=== PATIENT | female | born 1955 | race Caucasian/White ===

== ENCOUNTER → 2016-12-19 | Outpatient (CLI) | payer OTHER ==
[~2016-12-19] MED LIST: 00186-0372-20 IH; ABILIFY5 MG PO; AGGRENOX 25 MG-1 CER PO; AGGRENOX ER 251 CER PO; ALEVE 220MG220 MG PO; AMBIEN 10MG10 MG PO; AMBIEN CR 12.12.5 MG PO; AMBIEN CR12.5 MG PO; BUDEPRION SR150 M1 PO; CLONAZEPAM0.5 MG PO; DALIRESP500 MCG PO; DESYREL 50MG50 MG PO; DIFLUCAN150 MG PO; DILAUDID 2MG TAB2 MG PO; DITROPAN XL5 MG PO; DULERA1 ARO IH; EDARBI80 MG PO; EFFEXOR 75M75 MG/TAB PO; FIORICET 325 MG1 TA1 PO; FIORICET W/CODE1 CA1 PO; KLONOPIN 0.5MG0.5 MG PO; LAMICTAL200 MG PO; LEVAQUIN 750MG750 M1 PO; LEVOXYL0.175 MG PO; LEVOXYL0.2 MG PO; LIPITOR 40MG TA40 MG PO; LUNESTA3 MG PO; MASON NATURAL1200 MG PO; MEDROL 4MG DOSPA4 MG PO; OMEGA-3 1000 MG1 CAP PO; PANTOPRAZOLE40 MG PO; PREDNISONE20 MG PO; PROTONIX 40MG T40 MG PO; REGLAN 5MG T5 MG/TAB PO; RT SPIRIVA18 MCG IH; SEROQUEL 1100 MG/TAB PO; SIMVASTATIN20 MG PO; SYNTHROID0.15 MG PO; SYNTHROID0.175 MG PO; TEGRETOL 2200 MG/TA1 PO; THEO-DUR 1100 MG/TAB PO; TYLENOL 500MG500 MG PO; VENTOLIN0.09 MG IH; XANAX .25M0.25 MG/TA PO; ZOCOR 40MG40 MG PO; ZOFRAN 4MG T4 MG/TAB PO; ZOLOFT100 MG PO; ZYRTEC 10MG10 MG PO; [UNRECOGNIZED DRUG - OTHER] PO
== END ==
LOC: BHSO 14:39
DX: F31.11 Bipolar disorder, current episode manic without psychotic features, mild (principal)

== ENCOUNTER → 2017-01-22 | Outpatient (CLI) | payer OTHER | LOC: BHSO 12:46 | DX: F31.31 Bipolar disorder, current episode depressed, mild (principal) ==

== ENCOUNTER → 2017-01-31 | Outpatient (CLI) | payer OTHER | LOC: COL.RAD 08:00 | DX: M25.512 Pain in left shoulder (principal) | CPT/HCPCS: J3301; Q9967 ==

== ENCOUNTER → 2017-02-28 | Outpatient (CLI) | payer OTHER | LOC: BHSO 11:00 | DX: F31.31 Bipolar disorder, current episode depressed, mild (principal) ==

== ENCOUNTER 2017-03-15 07:00 | Day surgery (SDC) | payer OTHER ==
[~2017-03-15] VITALS: Ht 170.2 cm; Wt 107.9 kg
[~2017-03-15 07:00] MED LIST changes: -TYLENOL 500MG500 MG PO
[2017-03-15 08:09] VITALS: BP 128/79; PULSE 63
[2017-03-15 10:02] VITALS: BP 127/63; PULSE 62; TEMP 98
[2017-03-15 10:15] VITALS: BP 120/46; PULSE 60
[2017-03-15 10:30] VITALS: BP 119/72; PULSE 75; TEMP 98.2
[2017-03-15 11:59] VITALS: BP 111/52; PULSE 75
[2017-03-15 12:00] VITALS: BP 114/54; BP 127/57; PULSE 62; PULSE 70
[2017-06-23] MEDS ORDERED: TYLENOL 500MG500 MG PO (12:50)
== END 2017-03-15 11:30 | disposition home or self-care (01) ==
LOC: SDCO 07:00 → MEDICAL 07:01 → SDCO 11:00
DX: R05 Cough (principal); G47.33 Obstructive sleep apnea (adult) (pediatric); K21.9 Gastro-esophageal reflux disease without esophagitis; E07.9 Disorder of thyroid, unspecified; J45.909 Unspecified asthma, uncomplicated; Z86.73 Personal history of transient ischemic attack (TIA), and cerebral infarction without residual deficits; Z85.41 Personal history of malignant neoplasm of cervix uteri; Z79.899 Other long term (current) drug therapy
CPT/HCPCS: OP; J1956; J2704; J2920; J7120

== ENCOUNTER 2017-03-17 10:45 | Outpatient (RCR) | payer OTHER ==
[2017-06-23] MEDS ORDERED: TYLENOL 500MG500 MG PO (12:50)
== END 2017-03-18 | disposition home or self-care (01) ==
LOC: WSPT
DX: M25.512 Pain in left shoulder (principal)
CPT/HCPCS: G0283-GP

== ENCOUNTER → 2017-04-04 | Outpatient (CLI) | payer OTHER ==
[~2017-04-04] MED LIST changes: +TYLENOL 500MG500 MG PO
== END ==
LOC: BHSO 10:56
DX: F31.81 Bipolar II disorder (principal)

== ENCOUNTER 2017-04-14 15:45 | Outpatient (RCR) | payer OTHER ==
[~2017-04-14 15:45] MED LIST changes: -TYLENOL 500MG500 MG PO
[2017-06-23] MEDS ORDERED: TYLENOL 500MG500 MG PO (12:50)
== END 2017-05-14 07:58 | disposition still patient (30) ==
LOC: WSPT 15:45
DX: M13.812 Other specified arthritis, left shoulder (principal)
CPT/HCPCS: G0283-GP

== ENCOUNTER → 2017-04-21 | Outpatient (CLI) | payer OTHER ==
[~2017-04-21] MED LIST changes: +TYLENOL 500MG500 MG PO
== END ==
LOC: BHSO 10:05
DX: F31.73 Bipolar disorder, in partial remission, most recent episode manic (principal)

== ENCOUNTER → 2017-05-14 | Outpatient (CLI) | payer OTHER | LOC: COL.RAD 09:37 | DX: M50.321 Other cervical disc degeneration at C4-C5 level (principal); M47.812 Spondylosis without myelopathy or radiculopathy, cervical region; M48.02 Spinal stenosis, cervical region; M50.222 Other cervical disc displacement at C5-C6 level ==

== ENCOUNTER → 2017-05-28 | Outpatient (CLI) | payer OTHER ==
[~2017-05-28] VITALS: Ht 170.2 cm; Wt 109.4 kg
[2017-05-28 09:30] VITALS: BP 135/68; PULSE 70
== END ==
LOC: COL.RAD 09:00
DX: M50.922 Unspecified cervical disc disorder at C5-C6 level (principal); Z53.9 Procedure and treatment not carried out, unspecified reason

== ENCOUNTER → 2017-06-27 | Outpatient (CLI) | payer OTHER ==
[~2017-06-27] VITALS: Ht 170.2 cm; Wt 111.0 kg
[2017-06-27 08:55] VITALS: BP 124/77; PULSE 66
[2017-06-27 11:24] VITALS: BP 135/67; PULSE 56
[2017-06-27 11:29] VITALS: BP 135/73; PULSE 53
[2017-06-27 11:48] VITALS: BP 119/64; PULSE 55
== END ==
LOC: COL.RAD 06-20 09:15
DX: M50.222 Other cervical disc displacement at C5-C6 level (principal); M50.223 Other cervical disc displacement at C6-C7 level
CPT/HCPCS: J1100

== ENCOUNTER → 2017-07-22 | Outpatient (CLI) | payer OTHER | LOC: BHSO 09:57 | DX: F41.1 Generalized anxiety disorder (principal) ==

== ENCOUNTER → 2017-08-21 | Outpatient (CLI) | payer OTHER | LOC: MC.RAD 10:25 | DX: Z12.31 Encounter for screening mammogram for malignant neoplasm of breast (principal) ==

== ENCOUNTER 2017-08-22 08:25 | Outpatient (RCR) | payer OTHER | END 2017-09-11 12:02 | LOC: WSPT 08:25 | DX: M25.512 Pain in left shoulder (principal) ==

== ENCOUNTER → 2017-10-21 | Outpatient (CLI) | payer OTHER | LOC: BHSO 09:54 | DX: F41.1 Generalized anxiety disorder (principal) ==

== ENCOUNTER → 2018-01-20 | Outpatient (CLI) | payer OTHER | LOC: BHSO 09:44 | DX: F31.81 Bipolar II disorder (principal) | CPT/HCPCS: G0463 ==

== ENCOUNTER → 2018-03-13 | Outpatient (CLI) | payer OTHER | LOC: BHSO 10:12 | DX: F31.81 Bipolar II disorder (principal) | CPT/HCPCS: G0463 ==

== ENCOUNTER 2018-04-28 13:02 | Day surgery (SDC) | payer OTHER, MEDICARE ==
[~2018-04-28] VITALS: Ht 170.2 cm; Wt 99.5 kg
[2018-04-28 13:21] VITALS: BP 135/70; PULSE 55; TEMP 97.8
[2018-04-28] MEDS ORDERED: AGGRENOX ER 251 CER PO (13:23)
[2018-04-28] MEDS ORDERED: HYZAAR 50-12.1 UDTAB PO (13:23)
[2018-04-28] MEDS ORDERED: SINGULAIR 110 MG/TAB PO (13:23)
[2018-04-28] MEDS ORDERED: SYNTHROID 0.10.15 MG PO (13:24)
[2018-04-28] MEDS ORDERED: 00186-0372-20 IH (13:24)
[2018-04-28] MEDS ORDERED: STOOL SOFTENER100 M2 PO (13:24)
[2018-04-28] MEDS ORDERED: PRILOSEC 20MG20 MG PO (15:15)
[2018-04-28 15:25] VITALS: BP 107/52; PULSE 59; TEMP 97.6
[2018-04-28 15:45] VITALS: BP 107/52; PULSE 60
== END 2018-04-28 15:53 | disposition home or self-care (01) ==
LOC: SDCO 13:02
DX: K29.30 Chronic superficial gastritis without bleeding (principal); K25.7 Chronic gastric ulcer without hemorrhage or perforation; K31.89 Other diseases of stomach and duodenum; I10 Essential (primary) hypertension; J45.909 Unspecified asthma, uncomplicated; E78.5 Hyperlipidemia, unspecified; Z88.0 Allergy status to penicillin; Z86.73 Personal history of transient ischemic attack (TIA), and cerebral infarction without residual deficits; Z85.41 Personal history of malignant neoplasm of cervix uteri
CPT/HCPCS: OP; J2250; J3010; J7030

== ENCOUNTER → 2018-05-08 | Outpatient (CLI) | payer OTHER, MEDICARE ==
[~2018-05-08] MED LIST changes: +HYZAAR 50-12.1 UDTAB PO; +PRILOSEC 20MG20 MG PO; +SINGULAIR 110 MG/TAB PO; +STOOL SOFTENER100 M2 PO; +SYNTHROID 0.10.15 MG PO
== END ==
LOC: COL.RAD 07:46
DX: M25.512 Pain in left shoulder (principal); Z96.612 Presence of left artificial shoulder joint
CPT/HCPCS: J3301; Q9967

== ENCOUNTER → 2018-05-11 | Outpatient (CLI) | payer OTHER, MEDICARE | LOC: BHSO 10:24 | DX: F31.81 Bipolar II disorder (principal) | CPT/HCPCS: G0463 ==

== ENCOUNTER → 2018-07-14 | Outpatient (CLI) | payer OTHER, MEDICARE | LOC: BHSO 10:09 | DX: F31.81 Bipolar II disorder (principal) | CPT/HCPCS: G0463 ==

== ENCOUNTER 2018-08-03 16:27 | Observation (INO) | payer OTHER, MEDICARE ==
[~2018-08-03] VITALS: Ht 172.7 cm; Wt 98.6 kg
[~2018-08-03 16:27] MED LIST changes: -EFFEXOR 75M75 MG/TAB PO; +EFFEXOR-XR150 MG PO
[2018-08-03 17:01] LABS: BASO # 0.1 (0.0-0.2); BASO % 0.9 % (0.0-2.0); EOS # 0.2 (0.0-0.7); GRAN # 3.6 (1.4-6.5); GRAN % 64.9 % (42.2-75.2); HEMATOCRIT 41.8 % (37.0-47.0); HEMOGLOBIN 13.3 g/dl (12.5-16.0); LYMPH # 1.2 (1.2-3.4); LYMPH % 21.8 % (20.0-51.0); MEAN CELL VOLUME 85 fl (80.0-100.0); MEAN CORPUSCULAR HEMOGLOBIN 27 pg (27.0-31.0); MEAN CORPUSCULAR HGB CONC 32 g/dl (33.0-37.0); MEAN PLATELET VOLUME 9.4 fl (7.4-10.4); MONO # 0.4 (0.1-0.6); PLATELET COUNT 219 K/mm3 (130-400)
[2018-08-03 17:08] LABS: PARTIAL THROMBOPLASTIN TIME 32.9 SECONDS (26.0-37.0)
[2018-08-03 17:09] LABS: ALANINE AMINOTRANSFERASE 22 U/L (9-52); ALBUMIN 4.3 gm/dL (3.5-5.0); ALKALINE PHOSPHATASE 94 U/L (50-136); ANION GAP 12 mmol/L (7-16); AST,SGOT 23 U/L (15-37); BILIRUBIN,TOTAL 0.7 mg/dL (0.0-1.0); BLOOD UREA NITROGEN 9 mg/dL (7-17); CALCIUM 9.2 mg/dL (8.4-10.2); CARBON DIOXIDE 28 mmol/L (22-30); CHLORIDE 101 mmol/L (98-107); CREATININE, serum 0.64 mg/dL (0.52-1.25); GLUCOSE 98 mg/dL (74-106); POTASSIUM 3.2 mmol/L (3.4-5.0); SODIUM 141 mmol/L (137-145); TOTAL PROTEIN 7.4 gm/dL (6.4-8.2)
[2018-08-03 17:23] LABS: TROPONIN-I < 0.012 ng/mL (0.000-0.034)
[2018-08-03 19:42] VITALS: BP 157/66; PULSE 55; TEMP 98.4
[2018-08-03 20:27] LABS: TRICYCLIC ANTIDEPRESS URINE NEGATIVE
[2018-08-04 00:40] VITALS: BP 128/81; PULSE 68; TEMP 97.7
[2018-08-04 03:55] VITALS: BP 124/59; PULSE 52; TEMP 97.5
[2018-08-04 07:26] LABS: BASO % 0.8 % (0.0-2.0); EOS # 0.2 (0.0-0.7); EOS % 4.8 % (0-4.0); GRAN % 53.3 % (42.2-75.2); HEMATOCRIT 37.3 % (37.0-47.0); LYMPH # 1.2 (1.2-3.4); LYMPH % 30.5 % (20.0-51.0); MEAN CELL VOLUME 84 fl (80.0-100.0); MEAN CORPUSCULAR HEMOGLOBIN 27 pg (27.0-31.0); MEAN CORPUSCULAR HGB CONC 32 g/dl (33.0-37.0); MEAN PLATELET VOLUME 9.4 fl (7.4-10.4); MONO # 0.4 (0.1-0.6); MONO % 10.6 % (1.7-9.3); PLATELET COUNT 182 K/mm3 (130-400); RED BLOOD COUNT 4.44 M/mm3 (4.10-5.30); REDCELL DISTRIBUTION WIDTH-CV 22.3 % (11.5-14.5)
[2018-08-04 07:33] VITALS: BP 145/57; PULSE 49; TEMP 98.7
[2018-08-04 07:35] LABS: CALCIUM 8.6 mg/dL (8.4-10.2); CHOLESTEROL RISK RATIO 2.6; CREATININE, serum 0.57 mg/dL (0.52-1.25); POTASSIUM 3.5 mmol/L (3.4-5.0); URIC ACID 3.7 mg/dL (2.5-6.2)
[2018-08-04 07:55] LABS: ERYTHROCYTE SEDIMENTATION RATE 1 mm/hr (0-30)
[2018-08-04 08:27] LABS: CARBAMAZEPINE (TEGRETOL) 6.9 ug/mL (4.0-12.0)
[2018-08-04 11:21] VITALS: BP 162/64; PULSE 58; TEMP 98.6
[2018-08-04 13:17] LABS: HOMOCYSTEINE 6.9 umol/L (4.0-14.0)
[2018-08-04 15:11] VITALS: BP 161/73; PULSE 63; TEMP 98
[2018-08-04 20:30] VITALS: BP 179/65; PULSE 63; TEMP 98
[2018-08-04] MEDS ORDERED: BUSPIRONE HCL7.5 MG PO (21:11)
[2018-08-05 00:50] VITALS: BP 130/54; PULSE 58
[2018-08-05 04:39] VITALS: BP 144/63; PULSE 54; TEMP 97.8
[2018-08-05 07:25] VITALS: BP 158/57; PULSE 62; TEMP 98.2
[2018-08-05] MEDS ORDERED: SYNTHROID0.175 MG PO (09:02)
== END 2018-08-05 11:00 | disposition home or self-care (01) ==
LOC: COL.ER 16:27 → MEDICAL 17:32
PROVIDERS: Emergency Medicine; Hospitalist
DX: G81.94 Hemiplegia, unspecified affecting left nondominant side (principal); I10 Essential (primary) hypertension; E78.5 Hyperlipidemia, unspecified; E03.9 Hypothyroidism, unspecified; K21.9 Gastro-esophageal reflux disease without esophagitis; F32.9 Major depressive disorder, single episode, unspecified; J44.9 Chronic obstructive pulmonary disease, unspecified; K59.00 Constipation, unspecified; Z79.82 Long term (current) use of aspirin; Z90.710 Acquired absence of both cervix and uterus; Z88.0 Allergy status to penicillin; Z86.73 Personal history of transient ischemic attack (TIA), and cerebral infarction without residual deficits; Z82.49 Family history of ischemic heart disease and other diseases of the circulatory system
CPT/HCPCS: A9585; G0008; G0378; G8978-GP; G8979-GP; G8987-GO; G8988-GO; G8996-GN; G8997-GN; J1644; J7030

== ENCOUNTER → 2018-08-10 | Outpatient (CLI) | payer OTHER, MEDICARE ==
[~2018-08-10] MED LIST changes: +BUSPIRONE HCL7.5 MG PO
== END ==
LOC: BHSO 13:04
DX: F31.11 Bipolar disorder, current episode manic without psychotic features, mild (principal)

== ENCOUNTER → 2018-09-15 | Outpatient (CLI) | payer OTHER, MEDICARE | LOC: BHSO 10:06 | DX: F31.81 Bipolar II disorder (principal) | CPT/HCPCS: G0463 ==

== ENCOUNTER 2018-10-08 14:15 | Outpatient (RCR) | payer OTHER, MEDICARE | END 2018-11-10 | disposition home or self-care (01) | LOC: WSPT | DX: Z47.89 Encounter for other orthopedic aftercare (principal) | CPT/HCPCS: G0283-GP; G8978-GP; G8979-GP ==

== ENCOUNTER → 2018-11-17 | Outpatient (CLI) | payer OTHER, MEDICARE | LOC: BHSO 10:21 | DX: F31.81 Bipolar II disorder (principal) | CPT/HCPCS: G0463 ==

== ENCOUNTER 2018-11-26 09:35 | Inpatient (IN) | payer OTHER, MEDICARE ==
[~2018-11-26] VITALS: Ht 167.6 cm; Wt 103.7 kg
[2019-02-03] VITALS (13 sets, daily range): BP systolic 109–125; BP diastolic 51–72; PULSE 57–69; TEMP 97.4–98
[2019-02-03] MEDS ORDERED: HYZAAR 25 MG-101 TAB PO (07:35)
[2019-02-03] MEDS ORDERED: BIOTIN10000 MC1 PO (07:38)
[2019-02-03] MEDS ORDERED: AMBIEN 5MG TABLE5 MG PO (07:39)
[2019-02-03] MEDS ORDERED: B-121000 MCG PO (07:39)
[2019-02-03] MEDS ORDERED: IRON 27 MG PO (07:39)
--- NOTE | 2019-02-03 08:04 | NUR ---
appears to doze, awakened and full assessment completed and breakfast ordered
[2019-02-03] MEDS ORDERED: PREDFORTE15ML OD (08:45)
[2019-02-03] MEDS ORDERED: POLYMYXIN B/TRIMETH OD (08:46)
[2019-02-03] MEDS ORDERED: [UNRECOGNIZED DRUG - OTHER] OD (08:48)
--- NOTE | 2019-02-03 13:40 | NUR ---
returned to room per bed from PACU, awake and alert but very sleepy, IV infusing and placed on pump at 100ml/hr, O2 on at 3L/NC and O2 sat 94%, boyd cath patent draining clear yellow urine, aquacel dressing to left shoulder CD&I and abduction sling in place, SCDs on bilaterally, has eye patch over left eye since had cataract surgery last week, denies needs at this time
--- NOTE | 2019-02-03 14:15 | NUR ---
sleeps between checks, awakened and full assessment completed, see interventions for further info, eye drops placed, goes back to sleep quickly, friend at bedside
--- NOTE | 2019-02-03 14:47 | NUR ---
JOSE ELIAS and SW student met with the patient and patient's , Tomy, to discuss discharge plan. The patient lives outside of [facility] with her . She reports independence with ADLs prior to hospitalization and has a cane. The patient's PCP is Dr. Jaxon Shabazz and she receives her medications at the [facility] in [place]. She reports no difficulties obtaining her meds. The patient plans to return home with her and receive outpatient therapy at [facility] upon discharge. No additional needs at this time.
--- NOTE | 2019-02-03 14:53 | NUR ---
asking about having something to eat, provided applesauce and if tolerates will order regular food, instructed on how to order regular food and at bedside to help if needed
--- NOTE | 2019-02-03 15:00 | NUR ---
had applesauce and tolerated well, Dr Mercado in to see patient, boyd catheter discontinued, VENDING ROUTE DRIVER will assist up to bathroom
--- NOTE | 2019-02-03 15:30 | NUR ---
is back in bed now, states her stomach is "flip flopping" now but no real nausea or vomitting, states pain is ok at this time
--- NOTE | 2019-02-03 15:30 | NUR ---
c/o pain 04/19 and medicated with roxicodone 10mg po
--- NOTE | 2019-02-03 16:30 | NUR ---
assisted up to bathroom and voided qs, abduction sling adjusted around her back for comfort, denies other needs
--- NOTE | 2019-02-03 17:45 | NUR ---
sitting up in bed watching TV, denies needs
--- NOTE | 2019-02-03 18:59 | NUR ---
bedside shift report given to Megan PARISH and Jaz RN
--- NOTE | 2019-02-03 20:57 | NUR ---
Assessment completed. Patient is A&O x 4. VSS, currently on 3 liters of supplemental O2 via nasal cannula per orders. Reports numbness/tingling to LUE, voiced concerned that she is unable to feel arm at this time. Gave reassurance that block was still working and that is why patient's LUE is numbness/tingling. Radial pulses intact. Aquacell dressing to left shoulder is CDI. Shoulder abductor in place. Ice pack applied. Tolerating diet with no c/o nausea. Voiding with no difficulities. IVF infusing with intermittent antibiotic. Denies any concerns or needs at this time, call light is within reach. Will ambulate in the hallway with patient this evening.
--- NOTE | 2019-02-03 22:42 | NUR ---
UP TO AMBULATE IN [place]. WALKED FULL TEJON AROUND MEDICAL/SURGICAL FLOOR. TOLERATED WELL.
--- NOTE | 2019-02-04 04:08 | NUR ---
HAS RESTED WELL THROUGH THE NIGHT. UP TO BATHROOM AT THIS TIME. AMBULATES WELL WITH NO ASSISTANCE. VOIDING. O2@ 3L/NC. DENIES ANY C/O PAIN THIS SHIFT. ABDUCTOR SLING ON IN CORRECT POSITION. FRESH ICE PACK APPLIED. CALL LIGHT WITHIN REACH. BED IN LOW POSITION. WHEELS LOCKED. ENCOURAGED TO CALL FOR QUESTIONS OR CONCERNS. VERBALIZES UNDERSTANDING. WILL MONITOR.
[2019-02-04 04:24] VITALS: BP 109/42; PULSE 58; TEMP 98.1
--- NOTE | 2019-02-04 06:29 | NUR ---
REQUEST SENT TO PHARMACY TO ADJUST TIME OF PROTONIX DOSE TO 0900. REFUSED THIS AM STATING SHE WONT TAKE IT UNTIL 09.
--- NOTE | 2019-02-04 07:00 | NUR ---
appears to be dozing, bedside shift report received МАРИНА Sebastian
[2019-02-04] MEDS ORDERED: ROXICODONE 55 MG/TAB PO (07:53)
[2019-02-04] MEDS ORDERED: ASPI325T6 PO (07:53)
[2019-02-04] MEDS ORDERED: NORCO 325 MG-7.1 TAB PO (07:53)
--- NOTE | 2019-02-04 09:30 | NUR ---
physical therapy in and worked with patient, during execises she began to feel nauseous and hot and states it was because of the pain, was medicated with hydrocodone 7.5mg 2 tabs prior to therapy
--- NOTE | 2019-02-04 09:48 | NUR ---
Patient is resting in chair. No draining, redness, or edema noted to right hand INT. Pain rated at 7/10. PRN Narco given. She voices no complaints at this time. Will contiue to monitor.
[2019-02-04 09:51] VITALS: BP 117/57; PULSE 58; TEMP 97.5
--- NOTE | 2019-02-04 10:10 | NUR ---
reviewed assessment completed by student and in agreement with that assessment
--- NOTE | 2019-02-04 11:51 | NUR ---
up in chair looking at phone, denies any further nausea or feeling hot, states pain pills given earlier have helped and she will order lunch soon
--- NOTE | 2019-02-04 12:24 | NUR ---
First visit from the shop mechanic helper. No needs right now.
[2019-02-04 12:32] VITALS: BP 115/54; PULSE 65; TEMP 98.2
--- NOTE | 2019-02-04 13:21 | NUR ---
Patient is resting in chair. Left shoulder dressing remains CDI. Pain rated @ 4/10. No redness, drainage, or edema noted to right hand INT. She voices no complaints at this time. Will continue to monitor.
--- NOTE | 2019-02-04 13:30 | NUR ---
in bed and appears to be sleeping, resp quiet
--- NOTE | 2019-02-04 14:22 | NUR ---
in bed and appears to be sleeping, resp quiet and easy
--- NOTE | 2019-02-04 15:00 | NUR ---
calls and asks for some tylenol, enter room and she is tearful and states she is haviang terrible pain, explained she could have called earlier for something for pain and not to wait too long before taking pain pills, medicated with roxicodone 10mg po for c/os pain 07/20, will rest in chair and allow pain pills to start to work, here and given prescriptions and will go and pick these up,
--- NOTE | 2019-02-04 15:55 | NUR ---
resting in bed with sling off but arm in sling of plane, states having pain/discomfort to elbow, instructed her it is OK to move her elbow up and down but not out to the side, verbalizes understanding, states pain is getting better since pain pills
[2019-02-04 16:18] VITALS: BP 114/63; PULSE 64; TEMP 98.5
--- NOTE | 2019-02-04 16:20 | NUR ---
pain is now relieved and is ready for discharge, discharge instructions given to pateint and her , verbalizes understanding
--- NOTE | 2019-02-04 16:35 | NUR ---
discharged per WC
== END 2019-02-04 16:35 | disposition home or self-care (01) | DRG 483 ==
LOC: SURG 02-03 06:33 → JCC 02-03 07:30 → SURG 02-04 16:35
PROVIDERS: ADMIT Orthopaedic Surgery
PROC: 0RRK0JZ Replacement of Left Shoulder Joint with Synthetic Substitute, Open Approach (ICD-10-PCS; principal; 2019-02-03 11:00)
DX: M19.012 Primary osteoarthritis, left shoulder (principal); F41.9 Anxiety disorder, unspecified; Z85.41 Personal history of malignant neoplasm of cervix uteri; E78.00 Pure hypercholesterolemia, unspecified; M81.0 Age-related osteoporosis without current pathological fracture; Z86.73 Personal history of transient ischemic attack (TIA), and cerebral infarction without residual deficits; Z87.891 Personal history of nicotine dependence
CPT/HCPCS: A4314; A4619; A9284; C1713; C1776; J0171; J0690; J1100; J2250; J2405; J2704; J3370; J7030; J7120

== ENCOUNTER → 2019-01-06 | Outpatient (CLI) | payer OTHER, MEDICARE | LOC: BHSO 13:17 | DX: F31.81 Bipolar II disorder (principal) | CPT/HCPCS: G0463 ==

== ENCOUNTER → 2019-01-14 | Outpatient (CLI) | payer OTHER, MEDICARE | LOC: BHSO 10:26 | DX: F31.81 Bipolar II disorder (principal) | CPT/HCPCS: G0463 ==

== ENCOUNTER → 2019-01-27 | Outpatient (CLI) | payer OTHER, MEDICARE ==
[~2019-01-27] MED LIST changes: +AMBIEN 5MG TABLE5 MG PO; +ASPI325T6 PO; +B-121000 MCG PO; +BIOTIN10000 MC1 PO; +HYZAAR 25 MG-101 TAB PO; +IRON 27 MG PO; +NORCO 325 MG-7.1 TAB PO; +POLYMYXIN B/TRIMETH OD; +PREDFORTE15ML OD; +ROXICODONE 55 MG/TAB PO; +[UNRECOGNIZED DRUG - OTHER] OD
== END ==
LOC: MC.RAD 10:53
DX: Z12.31 Encounter for screening mammogram for malignant neoplasm of breast (principal)

== ENCOUNTER → 2019-01-27 | Outpatient (CLI) | payer OTHER, MEDICARE ==
[~2019-01-27] MED LIST changes: -AMBIEN 5MG TABLE5 MG PO; -ASPI325T6 PO; -B-121000 MCG PO; -BIOTIN10000 MC1 PO; -HYZAAR 25 MG-101 TAB PO; -IRON 27 MG PO; -NORCO 325 MG-7.1 TAB PO; -POLYMYXIN B/TRIMETH OD; -PREDFORTE15ML OD; -ROXICODONE 55 MG/TAB PO; -[UNRECOGNIZED DRUG - OTHER] OD
[2019-01-27 11:19] LABS: HIV 1/2 Antibodies Non-Reactive; HIV-1p24 Antigen Non-Reactive
== END ==
LOC: COL.LAB 10:21
PROVIDERS: Orthopaedic Surgery
DX: Z01.812 Encounter for preprocedural laboratory examination (principal); Z12.31 Encounter for screening mammogram for malignant neoplasm of breast; M19.012 Primary osteoarthritis, left shoulder

== ENCOUNTER → 2019-02-19 | Outpatient (CLI) | payer OTHER, MEDICARE ==
[~2019-02-19] MED LIST changes: +AMBIEN 5MG TABLE5 MG PO; +ASPI325T6 PO; +B-121000 MCG PO; +BIOTIN10000 MC1 PO; +HYZAAR 25 MG-101 TAB PO; +IRON 27 MG PO; +NORCO 325 MG-7.1 TAB PO; +POLYMYXIN B/TRIMETH OD; +PREDFORTE15ML OD; +ROXICODONE 55 MG/TAB PO; +[UNRECOGNIZED DRUG - OTHER] OD
== END ==
LOC: BHSO 11:01
DX: F31.81 Bipolar II disorder (principal)
CPT/HCPCS: G0463

== ENCOUNTER → 2019-04-06 | Outpatient (CLI) | payer OTHER, MEDICARE | LOC: BHSO 09:42 | DX: F31.81 Bipolar II disorder (principal) | CPT/HCPCS: G0463 ==

== ENCOUNTER → 2019-05-03 | Outpatient (CLI) | payer OTHER, MEDICARE | LOC: BHSO 09:51 | DX: F31.81 Bipolar II disorder (principal) | CPT/HCPCS: G0463 ==

== ENCOUNTER → 2019-08-03 | Outpatient (CLI) | payer OTHER, MEDICARE | LOC: BHSO 10:38 | DX: F31.81 Bipolar II disorder (principal) | CPT/HCPCS: G0463 ==

== ENCOUNTER → 2019-09-27 | Outpatient (CLI) | payer OTHER, MEDICARE | LOC: BHSO 14:07 | DX: F31.81 Bipolar II disorder (principal) | CPT/HCPCS: G0463 ==

== ENCOUNTER → 2019-12-20 | Outpatient (CLI) | payer OTHER, MEDICARE | LOC: COL.RAD 07:57 | DX: M25.511 Pain in right shoulder (principal) | CPT/HCPCS: J3301; Q9967 ==

== ENCOUNTER → 2020-03-14 | Outpatient (CLI) | payer OTHER, MEDICARE | LOC: BHSO 10:51 | DX: F41.1 Generalized anxiety disorder (principal) | CPT/HCPCS: G0463 ==

== ENCOUNTER → 2020-04-12 | Outpatient (CLI) | payer OTHER, MEDICARE | LOC: BHSO 08:56 | DX: F31.81 Bipolar II disorder (principal) | CPT/HCPCS: G0463 ==

== ENCOUNTER → 2020-08-17 | Outpatient (CLI) | payer OTHER, MEDICARE ==
[2020-08-17 11:35] LABS: HEMOGLOBIN 12.3 g/dl (12.5-16.0); MEAN CELL VOLUME 91 fl (80.0-100.0); MEAN CORPUSCULAR HEMOGLOBIN 29 pg (27.0-31.0); MEAN CORPUSCULAR HGB CONC 32 g/dl (33.0-37.0); MEAN PLATELET VOLUME 9.5 fl (7.4-10.4); PLATELET COUNT 209 K/mm3 (130-400); REDCELL DISTRIBUTION WIDTH-CV 17.9 % (11.5-14.5)
[2020-08-17 12:05] LABS: ERYTHROCYTE SEDIMENTATION RATE 6 mm/hr (0-30)
== END ==
LOC: COL.LAB 10:04
PROVIDERS: Orthopaedic Surgery
DX: Z96.611 Presence of right artificial shoulder joint (principal); Z96.612 Presence of left artificial shoulder joint

== ENCOUNTER → 2020-10-30 | Outpatient (CLI) | payer OTHER, MEDICARE | LOC: COL.RAD 06:55 | DX: K44.9 Diaphragmatic hernia without obstruction or gangrene (principal) | CPT/HCPCS: Q9967 ==

== ENCOUNTER → 2020-11-06 | Outpatient (CLI) | payer OTHER, MEDICARE | LOC: COL.RAD 12:01 | DX: R06.02 Shortness of breath (principal); R09.89 Other specified symptoms and signs involving the circulatory and respiratory systems ==

== ENCOUNTER → 2020-12-26 | Outpatient (CLI) | payer OTHER, MEDICARE | LOC: COL.RAD 08:42 | DX: R60.0 Localized edema (principal) | CPT/HCPCS: A9585; Q9967 ==

== ENCOUNTER → 2021-01-24 | Outpatient (CLI) | payer OTHER, MEDICARE ==
[~2021-01-24] MED LIST changes: +ATIVAN 1MG T1 MG/TAB PO; +CYMBALTA 60MG60 MG PO; +FOLIC ACID 40400 MCG PO; +LINZESS145CAP PO; +MELATONIN5 M1 SL; +MICARDIS HCT 251 TAB PO; +MULTIPLE VITAMI1 TA5 PO; +PLAVIX 75MG TAB75 MG PO; +RESTORIL 1515 MG/CAP PO; +VITAMINC1000TA PO; +VITAMIND3 5000 PO
== END ==
LOC: COL.RAD 12:52
DX: D73.89 Other diseases of spleen (principal); R10.30 Lower abdominal pain, unspecified; Z87.81 Personal history of (healed) traumatic fracture
CPT/HCPCS: Q9967

== ENCOUNTER → 2021-01-29 | Outpatient (CLI) | payer OTHER, MEDICARE | LOC: COL.RAD 09:44 | DX: M25.531 Pain in right wrist (principal) | CPT/HCPCS: J3301; Q9967 ==

== ENCOUNTER → 2021-05-15 | Day surgery (SDC) | payer OTHER, MEDICARE ==
[~2021-05-15] VITALS: Ht 167.6 cm; Wt 101.1 kg
[2021-05-15] VITALS (9 sets, daily range): BP systolic 113–139; BP diastolic 48–67; PULSE 54–57; TEMP 97.8
[2021-05-15 11:04] LABS: HEMOGLOBIN 12.7 g/dl (12.5-16.0); MEAN CELL VOLUME 86 fl (80.0-100.0); MEAN CORPUSCULAR HEMOGLOBIN 30 pg (27.0-31.0); MEAN CORPUSCULAR HGB CONC 34 g/dl (33.0-37.0); MEAN PLATELET VOLUME 9.9 fl (7.4-10.4); PLATELET COUNT 330 K/mm3 (130-400); RED BLOOD COUNT 4.31 M/mm3 (4.10-5.30); REDCELL DISTRIBUTION WIDTH-CV 17.1 % (11.5-14.5)
[2021-05-15 11:05] LABS: HEMATOCRIT 36.9 % (37.0-47.0)
[2021-05-15 11:32] LABS: INR 1.1 (0.8-3.0); PROTHROMBIN TIME 11.8 SECONDS (9.7-12.8)
[2021-05-15 11:33] LABS: CALCIUM 9.3 mg/dL (8.4-10.2); CREATININE, serum 0.49 (0.52-1.25); POTASSIUM 3.2 mmol/L (3.4-5.0)
[2021-05-15 11:35] LABS: PARTIAL THROMBOPLASTIN TIME 30.6 SECONDS (26.0-37.0)
--- NOTE | 2021-05-15 13:30 | NUR ---
This RN contacting to notify pt prepped for 1330 heart cath. Pt with no outpt preprocedure COVID test; swabbed today. Result of COVID test pending. notified of this. MD requests RN to contact him at 1400 to see if ready for pt to be taken to label printer. Pt updated regarding this by RN.
--- NOTE | 2021-05-15 13:58 | NUR ---
Pt's preprocedural COVID test resulting Negative. MD contacted at this time and notified. MD not currently available. MD will call Desktop Specialist staff when available for procedure.
--- NOTE | 2021-05-15 18:20 | NUR ---
PT HAS DONE WELL DURING HER RECOVERY. TR BAND HAS BEEN DEFLATED WITH NO PROBLEM, CMS INTACT DISTAL. SITE DRESSED WITH BANDAID, FOLDED 2X2 AND COBAN. IV DC'D WITH CATH INTACT, DRESSING APPLIED. I REVIEWED DC AND FU INSTRUCTIONS WITH PT AND SON. PT VERBALIZED UNDERSTANDING. PT ESCORTED TO EXIT VIA WHEELCHAIR.
== END ==
LOC: COL.CAR 10:34
PROVIDERS: Internal Medicine Interventional Cardiology
DX: I25.10 Atherosclerotic heart disease of native coronary artery without angina pectoris (principal); I10 Essential (primary) hypertension; I77.4 Celiac artery compression syndrome; E78.5 Hyperlipidemia, unspecified; Z86.73 Personal history of transient ischemic attack (TIA), and cerebral infarction without residual deficits; Z79.02 Long term (current) use of antithrombotics/antiplatelets; Z87.891 Personal history of nicotine dependence; Z79.899 Other long term (current) drug therapy
CPT/HCPCS: C1769; J1644; J2250; J3010; Q9967

== ENCOUNTER → 2022-01-23 | Outpatient (CLI) | payer OTHER, MEDICARE | LOC: COL.RAD 01-21 15:45 | DX: M25.462 Effusion, left knee (principal) ==

== ENCOUNTER → 2022-01-26 | Outpatient (CLI) | payer OTHER, MEDICARE ==
[2022-01-26 11:54] LABS: BASO # 0.1 K/mm3 (0.0-0.2); EOS # 0.1 K/mm3 (0.0-0.7); EOS % 2.4 % (0.0-4.0); GRAN # 2.7 K/mm3 (1.4-6.5); GRAN % 54.9 % (42.2-75.2); HEMATOCRIT 38.1 % (37.0-47.0); HEMOGLOBIN 12.4 g/dl (12.5-16.0); LYMPH # 1.6 K/mm3 (1.2-3.4); MEAN CELL VOLUME 87 fl (80.0-100.0); MEAN CORPUSCULAR HEMOGLOBIN 28 pg (27-31); MEAN CORPUSCULAR HGB CONC 33 g/dl (33.0-37.0); MEAN PLATELET VOLUME 9.4 fl (7.4-10.4); MONO # 0.5 K/mm3 (0.1-0.6); MONO % 9.5 % (1.7-9.3); PLATELET COUNT 227 K/mm3 (130-400); REDCELL DISTRIBUTION WIDTH-CV 19.7 % (11.5-14.5)
[2022-01-26 12:12] LABS: BILIRUBIN,TOTAL 0.3 mg/dL (0.2-1.2); CALCIUM 9.1 mg/dL (8.4-10.2); CARBAMAZEPINE (TEGRETOL) 9.9 ug/mL (4.0-12.0); CREATININE, serum 0.67 mg/dL (0.57-1.11); POTASSIUM 4.7 mmol/L (3.5-4.5); TOTAL PROTEIN 7.2 gm/dL (6.2-8.1)
== END ==
LOC: COL.LAB 11:21
PROVIDERS: Psychiatry & Neurology Neurology
DX: R56.9 Unspecified convulsions (principal); Z79.899 Other long term (current) drug therapy

== ENCOUNTER → 2022-08-01 | Outpatient (CLI) | payer OTHER, MEDICARE | LOC: COL.RAD 14:00 | DX: Z09 Encounter for follow-up examination after completed treatment for conditions other than malignant neoplasm (principal); Z87.440 Personal history of urinary (tract) infections ==

== ENCOUNTER 2023-03-12 20:07 | Emergency (ER) | payer OTHER, MEDICARE ==
[~2023-03-12] VITALS: Ht 170.2 cm; Wt 104.5 kg
[2023-03-12 20:09] VITALS: TEMP 97.8
[2023-03-12 21:51] LABS: BASO # 0.1 K/mm3 (0.0-0.2); BASO % 0.8 % (0.0-2.0); EOS # 0.1 K/mm3 (0.0-0.7); EOS % 1.2 % (0.0-4.0); GRAN # 4.5 K/mm3 (1.4-6.5); GRAN % 69.5 % (42.2-75.2); HEMOGLOBIN 11.5 g/dl (12.5-16.0); LYMPH # 1.3 K/mm3 (1.2-3.4); LYMPH % 19.8 % (20.0-51.0); MEAN CELL VOLUME 87 fl (80.0-100.0); MEAN CORPUSCULAR HEMOGLOBIN 29 pg (27-31); MEAN CORPUSCULAR HGB CONC 34 g/dl (33.0-37.0); MEAN PLATELET VOLUME 9.2 fl (7.4-10.4); MONO # 0.5 K/mm3 (0.1-0.6); MONO % 8.4 % (1.7-9.3); PLATELET COUNT 202 K/mm3 (130-400); RED BLOOD COUNT 3.96 M/mm3 (4.10-5.30); REDCELL DISTRIBUTION WIDTH-CV 17.4 % (11.5-14.5)
[2023-03-12 22:00] LABS: HEMATOCRIT 34.3 % (37.0-47.0)
[2023-03-12 22:03] LABS: PROTHROMBIN TIME 11.8 SECONDS (9.7-12.8)
[2023-03-12 22:23] LABS: ALBUMIN 3.6 gm/dL (3.4-4.8); BILIRUBIN,TOTAL 0.4 mg/dL (0.2-1.2); C-REACTIVE PROTEIN 0.43 mg/dL (0.00-0.50); CALCIUM 8.8 mg/dL (8.4-10.2); CREATININE, serum 0.69 mg/dL (0.57-1.11); POTASSIUM 3.9 mmol/L (3.5-4.5); TOTAL PROTEIN 6.1 gm/dL (6.2-8.1)
[2023-03-12 22:45] VITALS: BP 137/65; PULSE 93
== END 2023-03-12 22:50 | disposition home or self-care (01) ==
LOC: COL.ER 20:07
PROVIDERS: Family Medicine
DX: S60.352A Superficial foreign body of left thumb, initial encounter (principal); G45.9 Transient cerebral ischemic attack, unspecified; W45.8XXA Other foreign body or object entering through skin, initial encounter
CPT/HCPCS: Q9967

== ENCOUNTER → 2024-05-24 | Outpatient (CLI) | payer OTHER, MEDICARE ==
[~2024-05-24] MED LIST changes: +Iohexol 300 - 100 ML VIAL IV ONE; +NS 100 ML IV SCH
== END ==
LOC: COL.RAD 09:47
DX: I65.23 Occlusion and stenosis of bilateral carotid arteries (principal); M79.89 Other specified soft tissue disorders
CPT/HCPCS: Q9967

== ENCOUNTER → 2024-07-14 | Outpatient (CLI) | payer MEDICARE ==
[~2024-07-14] MED LIST changes: +Gadoterate 20 ML VIAL IV ONE; -Iohexol 300 - 100 ML VIAL IV ONE; -NS 100 ML IV SCH
== END ==
LOC: COL.RAD 08:44
DX: J38.7 Other diseases of larynx (principal); R59.0 Localized enlarged lymph nodes; R49.0 Dysphonia; I63.89 Other cerebral infarction
CPT/HCPCS: A9575